=== PATIENT | female | born 1940 | race Caucasian/White ===

== ENCOUNTER → 2016-10-25 | Outpatient (CLI) | payer MEDICARE ==
[2014-12-02 11:09] VITALS: BP 106/58
[~2016-10-25] MED LIST: ACET325T9 PO; ASCO500T2 PO; ASPI-482 PO; ATEN50TA PO; CALC-178 PO; CARB1TAB22 PO; CYAN1TAB28 PO; DOCU-27 PO; GARL10002 PO; LOSA100T6 PO; OXYB5TAB7 PO; POTA99TA10 PO; SELE5TAB2 PO; TRAM-29 PO; VITA1CAP5 PO
--- NOTE | 2016-10-25 13:14 | RAD ---
DATE: 10/25/2016 EXAM: DIGITAL DIAGNOSTIC BILATERAL HISTORY: Follow-up nodule COMPARISON: 02/01/2015, 01/20/2015 This study was interpreted with the benefit of Computerized Aided Detection (CAD). FINDINGS: There are scattered fibroglandular densities in both breasts. There is a 5-6 mm nodule in the lateral aspect of the right breast, best seen on the cc view. This is unchanged since 01/20/2015, and also appears to have been present on older studies, although partially obscured on those other exams by overlying dense fibroglandular tissue. Its stability suggests a benign etiology. No new or enlarging breast densities are seen. A marker from a previous breast biopsies again seen in the left breast just medial to the midline. There are stable microcalcifications in both breasts. No suspicious microcalcifications have developed. IMPRESSION: Stable mammograms without evidence of malignancy. BI-RADS CATEGORY: 2 BENIGN FINDING(S) RECOMMENDED FOLLOW-UP: 12M 12 MONTH FOLLOW-UP PQRS compliance statement: Patient information was entered into a reminder system with a target due date for the next mammogram. Mammography is a sensitive method for finding small breast cancers, but it does not detect them all and is not a substitute for careful clinical examination. A negative mammogram does not negate a clinically suspicious finding and should not result in delay in biopsying a clinically suspicious abnormality. "Our facility is accredited by the [employer] Mammography Program."
== END | disposition home or self-care (01) ==
LOC: KCIC MAMMO 12:17
PROVIDERS: ATTEND Family Medicine
DX: R92.8 Other abnormal and inconclusive findings on diagnostic imaging of breast (principal); N63 Unspecified lump in breast
CPT/HCPCS: G0204; 77066

== ENCOUNTER 2017-08-23 14:03 | Emergency (ER) | payer MEDICARE | END 2017-08-23 16:45 | disposition home or self-care (01) | LOC: ER 14:03 | DX: J20.9 Acute bronchitis, unspecified (principal); I10 Essential (primary) hypertension; Z88.2 Allergy status to sulfonamides; Z88.5 Allergy status to narcotic agent; Z88.8 Allergy status to other drugs, medicaments and biological substances | CPT/HCPCS: 71020; 99284 ==

== ENCOUNTER → 2017-10-31 | Outpatient (CLI) | payer MEDICARE | END | disposition home or self-care (01) | LOC: KCIC MAMMO 13:44 | DX: Z12.31 Encounter for screening mammogram for malignant neoplasm of breast (principal) | CPT/HCPCS: 77063; 77067 ==

== ENCOUNTER → 2018-02-28 | Outpatient (CLI) | payer MEDICARE | END | disposition home or self-care (01) | LOC: ECHO 09:53 | DX: I08.2 Rheumatic disorders of both aortic and tricuspid valves (principal); I10 Essential (primary) hypertension | CPT/HCPCS: 93306 ==

== ENCOUNTER → 2018-06-26 | Outpatient (CLI) | payer MEDICARE ==
[2018-02-26 14:00] VITALS: BP 137/62
[~2018-06-26] MED LIST changes: +ATEN1TAB3 PO; +AZIT250T PO; +CIPR250T30 PO; +DOCU-109 PO; -DOCU-27 PO; -LOSA100T6 PO; +LOSA100T7 PO; +NITR100C62 PO; +POTA99TA3 PO; +REGADENOSON 0.4 MG/5 ML DISP.SYRIN. IV ONE; -TRAM-29 PO; +TRAM-48 PO
--- NOTE | 2018-06-26 13:29 | RAD ---
MR#: [id number] Date of Study: 06/26/2018 Ordering Physician: RONI XAVIER, Referring Physician: JB MORENO Tech: DIMITRY Alcala, ARRT (R) (N)Cristopher MejiaMARCY APPROVED REPORT Test Type: Pharmacological Stress Nurse/Tech: Addis Anne R.N. Test Indications: SOB, fatigue Cardiac History: htn, Medications: See Electronic Medical Record Medical History: See Electronic Medical Record Resting ECG: SB Resting Heart Rate: 56 bpm Resting Blood Pressure: 197/77mmHg Pretest Chest Pain: No chest pain Nurse/Tech Notes S1S2, lungs CTA Consent: The procedure was explained to the patient in lay terms. Informed consent was witnessed. Nemesio eout was entered into [employer]. History and Stress Test performed by RT Dora (R) (N) Pharm. Details Pharmacologic stress testing was performed using 0.4mg per 5ml of regadenoson given intravenously ove r 7-10 seconds. Stress Symptoms SOB POST EXERCISE Reason for Termination: Infusion complete Max HR: 93 bpm Max Blood Pressure: 148/75mmHg Blood Pressure response to exercise: Normal blood pressure response during stress. Heart Rate response to exercise: wnl Chest Pain: No. Arrhythmia: No. [address] Change: No. INTERPRETATION Stress EKG Conclusion: Baseline EKG showed sinus rhythm. No ischemic changes at peak stress. No arr hythmias. Imaging Protocol IMAGE PROTOCOL: Rest Tc-99m/stress Tc-99m 1 day Rest: Stress: Viability: Radiopharm.Tc99m IxxnpnnxvWr19t Sestamibi Dose11.5mCi 33mCi Duration 15min. 13min. Img Date 06/26/2018 06/26/2018 Inj-Img Xnqm22pqv. 60min. Rest Admin Site:IV - Right AntecubitalAdministrator:RT Dora (R)(N) Stress Admin Site: IV - Right AntecubitalAdministrator: DIMITRY Alcala, ALEXSANDERT (R)(N) STRESS DATA End Diast. Vol.65.0mlEnd Syst. Vol.13.0ml Myocardial Pfbw190.0gEject. Nrhnjfdp77.0% Stress Scores Regional WT0.00Summed WT0.00 Regional WM0.00Summed WM0.00 Study quality was good. Left Ventricular size was Normal at Rest and Stress. Lung uptake was . Left Ventricular ejection fraction is 80%. The rest and stress images show normal perfusion, normal contraction and thickening. LV Perf. Quant 17 Seg. SSS0.00 17 Seg. SRS1.00 17 Seg. SDS0.00 Stress Defect Extent (% LAD)0.00Rest Defect Extent (% LAD)0.00Rev. Defect Extent (% LAD)0.00 Stress Defect Extent (% LCX) 0.00Rest Defect Extent (% LCX)0.00Rev. Defect Extent (% LCX)0.00 Stress Defect Extent (% RCA)0.00Rest Defect Extent (% RCA)0.00Rev. Defect Extent (% RCA)0.00 Stress Defect Extent (% CHARLES)0.00Rest Defect Extent (% CHARLES)0.00Rev. Defect Extent (% CHARLES)0.00 Conclusion 1. Regadenoson cardioisotope stress test did not show any evidence of ischemia or infarct. 2. Normal left ventricular systolic function with ejection fraction calculated at 81%. 3. Low risk for cardiac events. Signed by : Delonte Us, Electronically Approved : 06/26/2018 13:28:55
== END | disposition home or self-care (01) ==
LOC: NM 10:23
PROVIDERS: ATTEND Internal Medicine Cardiovascular Disease
DX: R06.02 Shortness of breath (principal); R07.9 Chest pain, unspecified; R53.83 Other fatigue; I10 Essential (primary) hypertension
CPT/HCPCS: 78452; 93017; 96374; 96375; 96376; A9500; J2785

== ENCOUNTER 2020-01-22 19:40 | Emergency (ER) | payer MEDICARE ==
[~2020-01-22] VITALS: Ht 167.6 cm; Wt 80.9 kg
[~2020-01-22 19:40] MED LIST changes: -ASCO500T2 PO; +ASCO500T4 PO; +LOSA100T14 PO; -LOSA100T7 PO; +OXYB5TAB10 PO; -OXYB5TAB7 PO; -REGADENOSON 0.4 MG/5 ML DISP.SYRIN. IV ONE; +SELE5TAB PO; -SELE5TAB2 PO
[2020-01-22] MEDS ORDERED: IV NORMAL SALINE 500ML BAG 500 ML IV SCH (20:30)
[2020-01-22 20:34] LABS: BASO % 1 % (0-3); EOS # 0.1 x10^3/uL (0.0-0.7); EOS % 1 % (0-3); HEMATOCRIT 38.3 % (36.0-47.0); HEMOGLOBIN 13.4 g/dL (12.0-15.5); LYMPH # 2.5 x10^3/uL (1.0-4.8); LYMPH % 31 % (24-48); MEAN CORPUSCULAR HEMOGLOBIN 32 pg (25-35); MEAN CORPUSCULAR HGB CONC 35 g/dL (31-37); MEAN CORPUSCULAR VOLUME 91 fL (79-100); MONO # 0.8 x10^3/uL (0.0-1.1); MONO % 10 % (0-9); NEUT # 4.7 x10^3/uL (1.8-7.7); NEUT % 57 % (31-73); PLATELET COUNT 278 x10^3/uL (140-400); RED BLOOD COUNT 4.22 x10^6/uL (3.50-5.40); RED CELL DISTRIBUTION WIDTH 12.8 % (11.5-14.5); WHITE BLOOD COUNT 8.2 x10^3/uL (4.0-11.0)
--- NOTE | 2020-01-22 20:49 | RAD ---
RS Compliance Statement: One or more of the following individualized dose reduction techniques were utilized for this examination: 1. Automated exposure control 2. Adjustment of the mA and/or kV according to patient size 3. Use of iterative reconstruction technique CT HEAD WITHOUT CONTRAST History: Reason: dizziness post chiropractic adjustment / Spl. Instructions: / History: Comparison: None. Technique: Axial images are obtained of the head from the skull base through the vertex without IV contrast. Findings: No mass-effect, midline shift, extra-axial fluid collection, hemorrhage, or obvious acute infarction is identified. Basilar cisterns are patent. The ventricles and sulci are normal for patient age. Bone windows demonstrate no acute calvarial abnormality. The visualized paranasal sinuses are clear. Mastoid air cells are well aerated. IMPRESSION: No acute intracranial abnormality. Electronically signed by: Reji Mayers MD (01/22/2020 8:46 PM) [facility]
--- NOTE | 2020-01-22 20:55 | RAD ---
PORTABLE CHEST 1V 01/22/2020 8:26 PM INDICATION: Syncope COMPARISON: 02/25/2018 TECHNIQUE: Portable frontal view of the chest is provided. FINDINGS: The cardiomediastinal silhouette is within normal limits. Lungs are clear. There are no significant pleural effusions. There is no pulmonary vascular congestion. No pneumothorax. No suspicious osseous abnormality. IMPRESSION: There is no acute cardiopulmonary process. Electronically signed by: Ladonna Jalloh MD (01/22/2020 8:52 PM) [facility]
--- NOTE | 2020-01-22 21:19 | PHYS DOC ---
Past Medical History Past Medical History: Hypertension, Unknown, Other Additional Past Medical Histor: parkinson, bladder trouble Past Surgical History: Appendectomy, Hysterectomy, Knee Replacement Additional Past Surgical Histo: bilateral great toe surgery Smoking Status: Never Smoker Alcohol Use: None Drug Use: None General Adult EDM: Chief Complaint: NEAR SYNCOPE HPI: HPI: Patient is a 79 year old female who presents with complaint of feeling very fuzzy headed for the last couple of days. Patient states that on Saturday she had a syncopal episode, stating that she was feeling really dizzy. She states that she went to see the chiropractor on Saturday to be treated for the dizziness because her C2 goes out frequently. She states that chiropractic adjustment was successful but she has been fuzzyheaded ever since. She denies any actual headache. She denies chest pain or shortness of breath. [] Review of Systems: Review of Systems: Constitutional: Denies fever or chills. [] Respiratory: Denies cough or shortness of breath. [] Cardiovascular: Denies chest pain or edema. [] GI: Denies abdominal pain, nausea, vomiting or diarrhea. [] Musculoskeletal: Denies back pain or joint pain. [] Integument: Denies rash. [] Neurologic: Denies headache, focal weakness or sensory changes. [] A full 10 point review of systems has been reviewed and is otherwise negative. Heart Score: Risk Factors: Risk Factors: DM, Current or recent (<one month) smoker, HTN, HLP, family history of CAD, obesity. Risk Scores: Score 0 - 3: 2.5% MACE over next 6 weeks - Discharge Home Score 4 - 6: 20.3% MACE over next 6 weeks - Admit for Clinical Observation Score 7 - 10: 72.7% MACE over next 6 weeks - Early Invasive Strategies Current Medications: Current Medications Medications (Trade) Dose Ordered Sig/Portia Start Time Stop Time Status Last Admin Dose Admin Sodium Chloride 500 ml @ 500 mls/hr Q1H 01/22/20 20:30 Allergies: Allergies: Allergies Coded Allergies Type Severity Reaction Last Updated Verified Sulfa (Sulfonamide Antibiotics) Allergy Intermediate rash 11/25/14 Yes adhesive Allergy Intermediate rash 11/25/14 Yes gabapentin Allergy Intermediate Unknown 11/26/14 No codeine Adverse Reaction Intermediate DISORIENTATION 11/25/14 Yes hydrocodone Adverse Reaction Intermediate "LOOPY" per RR RN 12/01/14 Yes Physical Exam: PE: Constitutional: Well developed, well nourished, no acute distress, non-toxic appearance. [] HENT: Normocephalic, atraumatic, bilateral external ears normal, oropharynx moist, no oral exudates, nose normal. [] Eyes: PERRLA, EOMI, conjunctiva normal, no discharge. [] Neck: Normal range of motion, no tenderness, supple. [] Cardiovascular: Regular rate and rhythm [] Lungs & Thorax: Bilateral breath sounds clear to auscultation [] Abdomen: Bowel sounds normal, soft, no tenderness. [] Skin: Warm, dry, no erythema, no rash. [] Extremities: No tenderness, no cyanosis, no clubbing, ROM intact, no edema. [] Neurologic: Alert and oriented X 3, no focal deficits noted. [] Current Patient Data: Labs: Laboratory Tests Test 01/22/20 20:05 White Blood Count 8.2 x10^3/uL (4.0-11.0) Red Blood Count 4.22 x10^6/uL (3.50-5.40) Hemoglobin 13.4 g/dL (12.0-15.5) Hematocrit 38.3 % (36.0-47.0) Mean Corpuscular Volume 91 fL (79-100) Mean Corpuscular Hemoglobin 32 pg (25-35) Mean Corpuscular Hemoglobin Concent 35 g/dL (31-37) Red Cell Distribution Width 12.8 % (11.5-14.5) Platelet Count 278 x10^3/uL (140-400) Neutrophils (%) (Auto) 57 % (31-73) Lymphocytes (%) (Auto) 31 % (24-48) Monocytes (%) (Auto) 10 % (0-9) H Eosinophils (%) (Auto) 1 % (0-3) Basophils (%) (Auto) 1 % (0-3) Neutrophils # (Auto) 4.7 x10^3/uL (1.8-7.7) Lymphocytes # (Auto) 2.5 x10^3/uL (1.0-4.8) Monocytes # (Auto) 0.8 x10^3/uL (0.0-1.1) Eosinophils # (Auto) 0.1 x10^3/uL (0.0-0.7) Basophils # (Auto) 0.0 x10^3/uL (0.0-0.2) Laboratory Tests 01/22/20 20:05 Vital Signs: Vital Signs Date Time Temp Pulse Resp B/P (MAP) Pulse Ox O2 Delivery O2 Flow Rate FiO2 01/22/20 19:40 97.7 75 19 166/87 (113) 98 Room Air 97.7 EKG: EKG: [] Radiology/Procedures: Radiology/Procedures: [] Impression: PROCEDURE: CT HEAD WO CONTRAST PQRS Compliance Statement: One or more of the following individualized dose reduction techniques were utilized for this examination: 1. Automated exposure control 2. Adjustment of the mA and/or kV according to patient size 3. Use of iterative reconstruction technique CT HEAD WITHOUT CONTRAST History: Reason: dizziness post chiropractic adjustment / Spl. Instructions: / History: Comparison: None. Technique: Axial images are obtained of the head from the skull base through the vertex without IV contrast. Findings: No mass-effect, midline shift, extra-axial fluid collection, hemorrhage, or obvious acute infarction is identified. Basilar cisterns are patent. The ventricles and sulci are normal for patient age. Bone windows demonstrate no acute calvarial abnormality. The visualized paranasal sinuses are clear. Mastoid air cells are well aerated. IMPRESSION: No acute intracranial abnormality. Electronically signed by: Reji Esposito MD (01/22/2020 8:46 PM) [facility] DICTATED and SIGNED BY: REJI ESPOSITO MD DATE: 01/22/202045 Course & Med Decision Making: Course & Med Decision Making Pertinent Labs and Imaging studies reviewed. (See chart for details) [] Dragon Disclaimer: Dragon Disclaimer: This electronic medical record was generated, in whole or in part, using a voice recognition dictation system. Departure Departure Impression: Primary Impression: Dizziness Additional Impression: UTI (urinary tract infection) Qualified Codes: N39.0 - Urinary tract infection, site not specified Disposition: 01 HOME, SELF-CARE Condition: STABLE Referrals: MAILE GONZÁLES MD (PCP) Patient Instructions: Dizziness, Urinary Tract Infection Scripts Nitrofurantoin Monohyd/M-Cryst (MACROBID 100 MG CAPSULE) 100 Mg Capsule 1 CAP PO BID for 7 Days, #14 CAP 0 Refills Prov: VANESSA PEDRO Jr. DO 01/23/20 VANESSA PEDRO Jr. DO January 22, 2020 21:19
[2020-01-22 21:43] LABS: BILIRUBIN,URINE NEGATIVE (NEG); CLARITY,URINE CLEAR; NITRITE,URINE NEGATIVE (NEG); PH,URINE 7.5 (<5.0-8.0); PROTEIN,URINE NEGATIVE (NEG-TRACE); UROBILINOGEN,URINE 0.2 mg/dL (0.2 mg/dL)
[2020-01-22 21:47] LABS: COLOR,URINE STRAW
[2020-01-22 21:52] LABS: ALBUMIN 3.3 g/dL (3.4-5.0); CALCIUM 8.7 mg/dL (8.5-10.1); CREATININE 1.2 mg/dL (0.6-1.0); GFR 43.3; MAGNESIUM 1.7 mg/dL (1.8-2.4); TOTAL BILIRUBIN 0.3 mg/dL (0.2-1.0); TOTAL PROTEIN 6.6 g/dL (6.4-8.2)
[2020-01-22 21:52] LABS: BACTERIA,URINE FEW /HPF (0-FEW); RBC,URINE OCC /HPF (0-2); SQUAMOUS EPITHELIAL CELL,UR FEW /LPF; WBC,URINE 20-40 /HPF (0-4)
[2020-01-22 22:00] LABS: POTASSIUM 2.9 mmol/L (3.5-5.1)
[2020-01-22] MEDS ORDERED: POTASSIUM CHLORIDE 20 MEQ TABLET.ER. PO ONE (22:15)
[2020-01-22] MEDS ORDERED: IV NORMAL SALINE 500ML BAG 500 ML IV ONE (23:00)
[2020-01-22] MEDS ORDERED: cefTRIAXone IV Push 1 GM VIAL. IVP ONE (23:55)
[2020-01-23] MEDS ORDERED: NITR100C62 PO (00:17)
[2020-01-23 00:20] VITALS: BP 146/69
--- NOTE | 2020-01-24 10:19 | EKG ---
[facility] [address] [place] [address] Test Date: 2020-01-22 Test Time: 19:54:52 Pat Name: THEODORE MILTON Department: Room: Gender: F [employer] Tender: : 1940 Requested By: VANESSA PEDRO Order Number: [id number] Reading MD: Measurements Intervals [facility] Rate: 65 P: 36 RI: 248 QRS: 23 QRSD: 96 T: 24 QT: 418 QTc: 435 Interpretive Statements SINUS RHYTHM PROLONGED RI INTERVAL ABNORMAL ECG RI6.02 No previous ECG available for comparison
== END 2020-01-23 00:50 | disposition home or self-care (01) ==
LOC: ER 19:40
DX: N39.0 Urinary tract infection, site not specified (principal); R55 Syncope and collapse; R42 Dizziness and giddiness; I10 Essential (primary) hypertension; Z90.710 Acquired absence of both cervix and uterus; Z90.89 Acquired absence of other organs; Z98.890 Other specified postprocedural states; Z88.2 Allergy status to sulfonamides; Z88.5 Allergy status to narcotic agent; Z88.8 Allergy status to other drugs, medicaments and biological substances
CPT/HCPCS: 36415; 70450; 71045; 80053; 81001; 83735; 85025; 87086; 96361; 96374; 99285; J0696; J7040; 93005

== ENCOUNTER → 2020-03-08 | Outpatient (CLI) | payer MEDICARE ==
--- NOTE | 2020-03-08 12:15 | KCIC ---
MRI Lumbar Spine without contrast History: Low back pain, right leg weakness Technique: Multiplanar, multi sequential noncontrast MR imaging was performed of the lumbar spine. Comparison: 10/21/2014 Findings: There is some motion. There is again grade 1 anterior spondylolisthesis L4-5 and L5-S1. There is now negligible posterior subluxation L2 relative L3. There has been progression of mild to moderate degenerative disc disease at L2-3 and L3-4, degree of mild to moderate L4-5 and L5-S1 degenerative disc disease more similar in interval. There is also anterior degenerative disc disease at T12-L1 and minimally L1-2. There is minimal edema of the L2-3 and superior L4 endplates probably reactive/degenerative in etiology. Conus terminates near the mid aspect of L2. 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 T11-12: There is facet degenerative change resulting in mild neural foramina compromise bilaterally. Spinal canal is adequate. There is buckling of the ligamentum flavum. T12-L1: There is shallow posterior protrusion. There is mild buckling of the ligamentum flavum and facet degenerative change. Neural foramina and spinal canal are adequate. L1-L2: There is shallow posterior bulge. There is mild buckling of the ligamentum flavum and facet degenerative change. There is again minimal narrowing of the far lateral recesses bilaterally. There is mild bilateral neural foramina compromise. L2-L3: There is disc osteophyte complex and bulge/broad protrusion now present, indentation upon the ventral thecal sac greater in the far left lateral recess. There is moderate facet hypertrophic change and mild to moderate buckling of the ligamentum flavum. There is increased tmez-ab-txuquaem narrowing of the far left lateral recess, mild narrowing of the far right lateral recess. There is increased moderate narrowing of the left neural foramen, minimal narrowing on the right. Small cystic focus in the right neural foramen is more likely due to small nerve root sleeve cyst. There is anterior annular tear. L3-L4: There is more prominent disc osteophyte complex and bulge. There is again moderate to severe facet degenerative change and buckling of the ligamentum flavum. There is overall increased moderate spinal stenosis including narrowing of the far lateral recesses bilaterally with contact of the descending L4 nerve roots. There is increased moderate left and fairly severe right neural foramina compromise with contact exiting L3 nerve roots greater on the right. There may be component of very small extrusion extending above the intervertebral disc space in the proximal right extraforaminal region although also narrowing of the right neural foramen by facet hypertrophic change and disc osteophyte complex. L4-L5: There has been interval posterior decompression. There is minimal disc osteophyte complex and bulge. Spinal canal is adequate. There is lffh-ml-ancmcvwp left and moderate right neural foramina compromise in part by disc osteophyte complex which is near the undersurface exiting right L4 nerve root. L5-S1: There has been interval posterior decompression, spinal canal overall adequate. There is fairly severe facet degenerative change. There is severe narrowing of the left neural foramen with contact exiting left L5 nerve root, moderate narrowing on the right. Impression: 1. Compared with the 2015 exam, there has been progression of degenerative disc disease at L2-3 and L3-4. There is increased moderate spinal stenosis at L3-4 including lateral recess stenosis, also increased xetz-ab-njwrymne narrowing of the left lateral recess at L2-3. There has been posterior decompression at L4-5 and L5-S1 in the interval, spinal canal adequate at these levels. 2. There is multilevel lumbar neural foramina compromise, more significant narrowing on the right at L3-4 and on the left at L5-S1, other moderate narrowing as described. 3. There is mild abnormal alignment. There is multilevel lumbar facet degenerative change. Electronically signed by: Gordo Zaragoza MD (03/08/2020 12:11 PM) [id number]
== END | disposition home or self-care (01) ==
LOC: KCIC MRI 10:43
PROVIDERS: ATTEND Family Medicine
DX: M51.37 Other intervertebral disc degeneration, lumbosacral region (principal); M51.25 Other intervertebral disc displacement, thoracolumbar region; M43.17 Spondylolisthesis, lumbosacral region; M25.78 Osteophyte, vertebrae; M48.07 Spinal stenosis, lumbosacral region
CPT/HCPCS: 72148

== ENCOUNTER → 2020-04-18 | Outpatient (CLI) | payer MEDICARE | END | disposition home or self-care (01) | LOC: SURGPAT 13:42 | PROVIDERS: ATTEND Neurological Surgery | DX: Z01.812 Encounter for preprocedural laboratory examination (principal); Z20.828 Contact with and (suspected) exposure to other viral communicable diseases; M48.061 Spinal stenosis, lumbar region without neurogenic claudication | CPT/HCPCS: 87641; U0003 ==

== ENCOUNTER 2020-04-21 07:08 | Day surgery (SDC) | payer MEDICARE ==
--- NOTE | 2020-04-20 11:41 | HP ---
ADMIT DATE: 04/21/2020 DATE OF SURGERY: 04/21/2020 HISTORY OF PRESENT ILLNESS: The patient is a pleasant 79-year-old who has problems with lower back pain on the right side along with pain which radiates into her right hip. This pain has been present for about 1 year. She rates her pain as 7/10. Walking or standing increases her pain. She was doing physical therapy, which she reported makes the problem worse. Acupuncture was no benefit to her. She uses a walker to help with ambulation. She does not notice significant lower extremity involvement. PAST MEDICAL HISTORY: Headaches, Parkinson's, and hypertension. PAST SURGICAL HISTORY: Hysterectomy in 1986, knee surgery in 2002, foot surgery in 2012, and lumbar microdecompression at L4-5 and L5-S1 bilaterally in 11/2014. FAMILY HISTORY: Alzheimer disease and cancer. SOCIAL HISTORY: She is retired. . Exercises rarely. Nonsmoker. Denies alcohol use. ALLERGIES: SULFA, HYDROCODONE, CODEINE, ADHESIVE BANDAGES, AND NEURONTIN. CURRENT MEDICATIONS: Carbidopa/levodopa, selegiline, losartan, potassium, atenolol, aspirin, oxybutynin, chlorthalidone, and multivitamin. REVIEW OF SYSTEMS: A 12-point review of systems was obtained and is noncontributory except that mentioned above. PHYSICAL EXAMINATION: NEUROSURGERY EXAMINATION: GENERAL APPEARANCE: Alert, in no acute distress. HEAD: Normocephalic, atraumatic. SKIN: Warm and dry, well-healed lumbar incision. MUSCULOSKELETAL: Lumbar paraspinal muscle bulk is normal, restricted range of motion of the lumbar spine, xxso-zq-zwlanydc tenderness of the lower lumbar spine with palpation, normal range of motion of the lower extremities bilaterally. EXTREMITIES: No clubbing, cyanosis, or edema. NEUROLOGIC: Alert and oriented x 3, normal recent and remote memory. Strength 5/5 in bilateral lower extremities, sensory was intact to light touch in bilateral lower extremities. Reflexes are present and symmetric in lower extremities bilaterally, negative straight leg raising bilaterally, ambulates with a walker. IMAGING: I reviewed a lumbar MRI scan. On that study, there has been a progression, primarily of the stenosis at L3-4. At that level, there is disk bulging and hypertrophic facets with relatively severe lumbar spinal stenosis. She does have postoperative changes below this level at L4-5 and L5-S1. ASSESSMENT: Spinal stenosis, lumbar region with neurogenic claudication. PLAN: I believe the stenosis at L3-4 is continuing to give her pain. I have recommended lumbar surgery. At this level, I would do a bilateral decompression. I spoke with her about the surgery and the risks. She understands. She would like to go ahead. We will make the arrangements. JASON BAER MD DR: MAYA/meche JOB#: [id number] / [id number] MELODY
[~2020-04-21] VITALS: Ht 167.6 cm; Wt 78.9 kg
[~2020-04-21 07:08] MED LIST changes: +BACITRACIN 50,000 UNIT in IV NORMAL SALINE 1000ML BAG 1,000 ML IRR ONE; +HYDROmorphone 2 MG/ML VIAL IV PRN; +IV RINGERS,LACTATED 1000ML 1,000 ML IV SCH; +LIDOCAINE 1% PF 2 ML VIAL. ID PRN; +MORPHINE SULFATE 2 MG/ML VIAL. IV PRN; +ONDANSETRON PF 4 MG/2 ML VIAL. IV PRN; +PROCHLORPERAZINE 10 MG/2 ML VIAL. IV PRN; +fentaNYL PF VIAL 100 MCG/2 ML VIAL IV PRN
[2020-04-21] MEDS ORDERED: GELATIN SPONGE SIZE 100. ONE (07:36)
[2020-04-21] MEDS ORDERED: KETOROLAC 60 MG/2 ML VIAL. ONE (07:36)
[2020-04-21] MEDS ORDERED: BUPIVACAINE-EPI 0.5%-1:200000 MPF 30 ML VIAL. ONE (07:36)
[2020-04-21] MEDS ORDERED: THROMBIN TOPICAL 20,000 UNIT SPRAY.SYRN KIT TP ONE (07:36)
[2020-04-21] MEDS ORDERED: PROPOFOL 10 MG/ML (20ML) VIAL. IV ONE (07:59)
[2020-04-21] MEDS ORDERED: PROPOFOL 50 ML IV ONE ×2 (07:59→10:31)
[2020-04-21] MEDS ORDERED: LIDOCAINE 2% PF 5 ML VIAL. ONE (07:59)
[2020-04-21] MEDS ORDERED: SUCCINYLCHOLINE 200 MG/10 ML VIAL. ONE (07:59)
[2020-04-21] MEDS ORDERED: ROCURONIUM 50 MG/5 ML VIAL. ONE (07:59)
[2020-04-21] MEDS ORDERED: REMIFENTANIL 1 MG VIAL. IV ONE ×2 (07:59→10:45)
[2020-04-21] MEDS ORDERED: 0.9 % SODIUM CHLORIDE 20 ML VIAL. IJ ONE ×2 (07:59→10:45)
[2020-04-21] MEDS ORDERED: fentaNYL PF VIAL 100 MCG/2 ML VIAL ONE (08:13)
[2020-04-21] MEDS ORDERED: ONDANSETRON PF 4 MG/2 ML VIAL. ONE (09:35)
[2020-04-21] MEDS ORDERED: DEXAMETHASONE SOD PHOS 20 MG/5 ML VIAL. ONE (09:35)
[2020-04-21] MEDS ORDERED: NEOSTIGMINE METHYLSULFATE 5 MG/5 ML SYRINGE. ONE (09:57)
[2020-04-21] MEDS ORDERED: GLYCOPYRROLATE 1 MG/5 ML VIAL. ONE (09:57)
--- NOTE | 2020-04-21 11:42 | DISCH ---
DISCHARGE INSTRUCTIONS Condition on Discharge Condition on Discharge: Stable Activity After Discharge Activity Instructions for Disc: Activity as tolerated, Avoid exertion Other activity instructions: no driving for a week Bathing Instructions: Shower-keep dressing dry, No Tub Bath until see Lifting Instructions after Dis: No heavy lifting, No pulling or pushing, Do not lift >10 pounds Driving Instructions after Dis: Do not drive Weight Bearing Status after Di: As tolerated Diet after Discharge Diet after Discharge: Regular Additional Diet Restrictions: resume home diet Wound Incision Care Wound/Incision Care: Ice to area for comfort Other wound/incision instructi: may remove dressing in 48 hours if dry , leave steri strips on Contacting the DRFlor after DC Call your doctor for: Concerns you may have Follow-Up Follow up with: Dr. Baer's nurse in 2 weeks [phone] Treatment/Equipment after DC Adaptive Equipment Issued: None JASON BAER MD Apr 21, 2020 11:42
[2020-04-21 13:15] VITALS: BP 179/66
[2020-04-21] MEDS ORDERED: ACETAMINOPHEN 325 MG TABLET. PO ONE (13:15)
--- NOTE | 2020-04-21 13:25 | OP ---
DATE OF SURGERY: 04/21/2020 PREOPERATIVE DIAGNOSES: Lumbar spinal stenosis, lateral recess stenosis at L3-4 with severe right lumbar radiculopathy. POSTOPERATIVE DIAGNOSES: Lumbar spinal stenosis, lateral recess stenosis L3-4 with severe right lumbar radiculopathy. OPERATION PERFORMED: Right direct laminectomy L3-4 with decompression of dura and nerve root. The operation was done with EMG monitoring, SSEP monitoring, fluoroscopy, and microscopic dissection. SURGEON: Kevan Baer M.D. HR SYSTEMS ANALYST: ARIK Harris, assisted with the surgery. She assisted with the exposure, the microdecompression as well as the closure. OPERATIVE INDICATIONS: The patient is a pleasant 79-year-old who has undergone lumbar surgery in the past and now has developed stenosis at L3-4, which is above the previous surgeries. The problem has involved in severe right lower extremity pain and I recommended a lumbar laminectomy. I spoke with her about the surgery, the risks, technique, and expected postoperative course and she wished to go ahead. DESCRIPTION OF PROCEDURE: Following general endotracheal anesthesia, the patient was positioned prone on the Tyrell frame. She was carefully positioned to avoid any pressure points. She was prepped and draped in a standard fashion. LEIGH hose and AV impulse boots were applied for DVT prophylaxis. A microscope was draped. Fluoroscopy was draped and brought in the field. Monitoring was established. Ancef 2 g was given at 0960. Skin incision was made, I dissected down through skin and subcutaneous tissue, reflected the paraspinal muscles and placed a [place] microdisk retractor. I did use fluoroscopic guidance. I then brought in the high speed air drill and the microscope and using microscopic technique, I drilled from the midline out laterally. There was considerable scarring from her previous surgeries and I worked down the ligamentum flavum and then I tilted the patient away from me and crossed over the midline and were quite far to the opposite side. I then peeled ligamentum flavum from medial to lateral, and I drilled it and peeled and gradually visualized the dura. I did perform a generous partial foraminotomy. I trimmed laterally past the lateral edge of the dura. I peeled away the thickened ligamentum flavum and exposed the underlying dura and then I fully decompressed the entire region. There was some disc bulging beneath the dura, but it was hard and no discectomy was warranted. I irrigated copiously with antibiotic solution. I then obtained excellent hemostasis and closed the wound in layers with absorbable suture. The skin was closed with 4-0 subcuticular stitch. I felt the surgery went very well. KEVAN BAER MD DR: MAYA/meche JOB#: [id number] / [id number] MELODY
[2020-04-21] MEDS ORDERED: CARBIDOPA/LEVODOPA 25/100MG TABLET PO ONE (13:30)
--- NOTE | 2020-04-25 19:06 | PATHOLOGY ---
[facility] Accession Number: [id number] . 01 Material submitted: . vertebral column - LUMBAR DECOMPRESSION . 01 Clinical history: . LUMBAR STENOSIS . 02 Diagnosis: Bone and soft tissue "L3-4", microdecompression: - Reactive/regenerative changes of hyaline cartilage and fibrous tissue. - Unremarkable fragments of bony trabeculae. (MLK:patricia; 04/22/2020) MBR 04/22/2020 1755 Local . 02 Electronically signed: . Manuel De Leon MD, Pathologist NPI- [id number] . 01 Gross description: . Received in formalin labeled "Beor, Maryjo, lumbar decompression" is a 4.0 x 3.0 x 0.8 cm aggregate of nava-white bone and soft tissue fragments. Hardwood Floor Sander tissue is submitted in cassette A1 following decalcification. ([facility] [place]; 04/21/2020) [facility] 04/21/2020 1804 Local . 02 Pathologist provided ICD-10: M51.36 . 02 CPT . 364678, [id number] Specimen Comment: A courtesy copy of this report has been sent to [phone], [phone] Specimen Comment: [id number] Specimen Comment: Report sent to / DR GONZÁLES Performed at: 01 [facility] [address] [facility] [address] [place], [place] [id number] MD Beni Farris MD Phone: [phone] Performed at: 02 [facility] [address] [id number] MD Cristian Diaz MD Phone: [phone]
== END 2020-04-21 14:14 | disposition home or self-care (01) ==
LOC: SURG 07:08
PROVIDERS: ATTEND Neurological Surgery
DX: M48.061 Spinal stenosis, lumbar region without neurogenic claudication (principal); M54.16 Radiculopathy, lumbar region; I10 Essential (primary) hypertension; Z98.890 Other specified postprocedural states; Z88.5 Allergy status to narcotic agent; Z88.2 Allergy status to sulfonamides; Z88.8 Allergy status to other drugs, medicaments and biological substances; Z79.82 Long term (current) use of aspirin; Z79.899 Other long term (current) drug therapy
CPT/HCPCS: 63047; 88304; 88311; 97116; 97162; 97530; A7015; J0330; J0690; J1100; J1885; J2405; J2704; J2710; J3010; J3490; J7030; J7120; 76000

== ENCOUNTER 2021-02-19 20:35 | Emergency (ER) | payer MEDICARE ==
[~2021-02-19] VITALS: Ht 167.6 cm; Wt 75.0 kg
[~2021-02-19 20:35] MED LIST changes: -BACITRACIN 50,000 UNIT in IV NORMAL SALINE 1000ML BAG 1,000 ML IRR ONE; -HYDROmorphone 2 MG/ML VIAL IV PRN; -IV RINGERS,LACTATED 1000ML 1,000 ML IV SCH; -LIDOCAINE 1% PF 2 ML VIAL. ID PRN; -MORPHINE SULFATE 2 MG/ML VIAL. IV PRN; -ONDANSETRON PF 4 MG/2 ML VIAL. IV PRN; -PROCHLORPERAZINE 10 MG/2 ML VIAL. IV PRN; -fentaNYL PF VIAL 100 MCG/2 ML VIAL IV PRN
--- NOTE | 2021-02-19 22:11 | ED.ADGEN ---
Past Medical History Past Medical History: Hypertension, Unknown, Other Additional Past Medical Histor: parkinson, bladder trouble Past Surgical History: Appendectomy, Hysterectomy, Knee Replacement Additional Past Surgical Histo: bilateral great toe surgery, bilat knee replace Smoking Status: Never Smoker Alcohol Use: None Drug Use: None General Adult EDM: Chief Complaint: DIZZY/LIGHT HEADED HPI: HPI: Patient is a 80 year old female coming to emergency department for syncopal episodes. Patient was discharged in the hospital 3 days ago for the same complaint. Patient states that she has been having stomach upset with eating and been eating less. Also states that she took a laxative 2 days ago and had a large bowel movement yesterday. Patient states that she cannot have bowel movements without laxative. States she is felt lightheaded even with laying down it is comes and goes. Is not associated with standing up or movement. Review of Systems: Review of Systems: All other systems within normal limits except for as noted in the HPI Current Medications: Current Medications Medications (Trade) Dose Ordered Sig/Portia Start Time Stop Time Status Last Admin Dose Admin Magnesium Sulfate/ Dextrose 100 ml @ 100 mls/hr 1X ONCE 02/19/21 23:30 02/20/21 00:29 02/20/21 00:03 100 MLS/HR Allergies: Allergies: Allergies Coded Allergies Type Severity Reaction Last Updated Verified Sulfa (Sulfonamide Antibiotics) Allergy Intermediate rash 04/21/20 Yes adhesive Allergy Intermediate rash 04/21/20 Yes gabapentin Allergy Intermediate Unknown 04/21/20 No codeine Adverse Reaction Intermediate DISORIENTATION 04/21/20 Yes hydrocodone Adverse Reaction Intermediate "LOOPY" per RR RN 04/21/20 Yes Physical Exam: PE: Constitutional: Well developed, well nourished, no acute distress, non-toxic appearance. [] HENT: Normocephalic, atraumatic, bilateral external ears normal, nose normal. [] Eyes: PERRLA, conjunctiva normal, no discharge. [] Neck: No rigidity, supple, no stridor. [] Cardiovascular: Regular rate and rhythm, brisk cap refill [] Lungs & Thorax: Non labored symmetric respirations, no tachypnea or respiratory distress [] Abdomen: Soft, nondistended. Skin: Warm, dry, no erythema, no rash. [] Back: Unremarkable Extremities: No deformities, range of motion grossly intact, no lower extremity edema [] Neurologic: Alert and oriented X 3, no focal deficits noted. [] Psychologic: Affect normal, judgement normal, mood normal. [] Current Patient Data: Labs: Laboratory Tests Test 02/19/21 22:57 White Blood Count 9.1 x10^3/uL (4.0-11.0) Red Blood Count 4.14 x10^6/uL (3.50-5.40) Hemoglobin 12.8 g/dL (12.0-15.5) Hematocrit 37.6 % (36.0-47.0) Mean Corpuscular Volume 91 fL (79-100) Mean Corpuscular Hemoglobin 31 pg (25-35) Mean Corpuscular Hemoglobin Concent 34 g/dL (31-37) Red Cell Distribution Width 12.6 % (11.5-14.5) Platelet Count 293 x10^3/uL (140-400) Neutrophils (%) (Auto) 62 % (31-73) Lymphocytes (%) (Auto) 28 % (24-48) Monocytes (%) (Auto) 9 % (0-9) Eosinophils (%) (Auto) 0 % (0-3) Basophils (%) (Auto) 1 % (0-3) Neutrophils # (Auto) 5.6 x10^3/uL (1.8-7.7) Lymphocytes # (Auto) 2.6 x10^3/uL (1.0-4.8) Monocytes # (Auto) 0.8 x10^3/uL (0.0-1.1) Eosinophils # (Auto) 0.0 x10^3/uL (0.0-0.7) Basophils # (Auto) 0.1 x10^3/uL (0.0-0.2) Sodium Level 130 mmol/L (136-145) L Potassium Level 3.3 mmol/L (3.5-5.1) L Chloride Level 95 mmol/L (98-107) L Carbon Dioxide Level 24 mmol/L (21-32) Anion Gap 11 (6-14) Blood Urea Nitrogen 15 mg/dL (7-20) Creatinine 1.1 mg/dL (0.6-1.0) H Estimated GFR (Cockcroft-Gault) 47.8 BUN/Creatinine Ratio 14 (6-20) Glucose Level 101 mg/dL (70-99) H Lactic Acid Level 1.0 mmol/L (0.4-2.0) Calcium Level 9.0 mg/dL (8.5-10.1) Phosphorus Level 3.9 mg/dL (2.6-4.7) Magnesium Level 1.6 mg/dL (1.8-2.4) L Total Bilirubin 0.4 mg/dL (0.2-1.0) Aspartate Amino Transferase (AST) 13 U/L (15-37) L Alanine Aminotransferase (ALT) 8 U/L (14-59) L Alkaline Phosphatase 61 U/L (46-116) Troponin I Quantitative < 0.017 ng/mL (0.000-0.055) IZ-Huf-O-Type Natriuretic Peptide 912 pg/mL (0-449) H Total Protein 6.2 g/dL (6.4-8.2) L Albumin 3.6 g/dL (3.4-5.0) Albumin/Globulin Ratio 1.4 (1.0-1.7) Thyroid Stimulating Hormone (TSH) 2.060 uIU/mL (0.358-3.74) Laboratory Tests 02/19/21 22:57 Laboratory Tests 02/19/21 22:57 Vital Signs: Vital Signs Date Time Temp Pulse Resp B/P (MAP) Pulse Ox O2 Delivery O2 Flow Rate FiO2 02/19/21 20:56 97.7 72 16 161/90 (113) 98 Room Air 97.7 EKG: EKG: [] Heart Score: C/O Chest Pain: No Risk Factors: Risk Factors: DM, Current or recent (<one month) smoker, HTN, HLP, family history of CAD, obesity. Risk Scores: Score 0 - 3: 2.5% MACE over next 6 weeks - Discharge Home Score 4 - 6: 20.3% MACE over next 6 weeks - Admit for Clinical Observation Score 7 - 10: 72.7% MACE over next 6 weeks - Early Invasive Strategies Radiology/Procedures: Radiology/Procedures: EP interpretation: Chest unremarkable, no cardiomegaly or infiltrates. [] Course & Med Decision Making: Course & Med Decision Making Pertinent Labs and Imaging studies reviewed. (See chart for details) Patient given 1 g magnesium, magnesium 1 drop since discharge. Offered admission for further evaluation. Patient declines and would like to go home. [] Esteban Disclaimer: Esteban Disclaimer: This electronic medical record was generated, in whole or in part, using a voice recognition dictation system. Departure Departure Impression: Primary Impression: Near syncope Additional Impressions: Hyponatremia Hypomagnesemia Disposition: HOME / SELF CARE / HOMELESS Condition: STABLE Referrals: MAILE GONZÁLES MD (PCP) Patient Instructions: Near-Syncope Scripts Magnesium Oxide (MAGNESIUM OXIDE) 400 Mg Tablet 1 TAB PO BID for 10 Days, #20 TAB 0 Refills Prov: MELISA GUPTA MD 02/20/21 Problem Qualifiers MELISA GUPTA MD Feb 19, 2021 22:10
[2021-02-19 23:04] LABS: BASO # 0.1 x10^3/uL (0.0-0.2); BASO % 1 % (0-3); EOS % 0 % (0-3); HEMATOCRIT 37.6 % (36.0-47.0); HEMOGLOBIN 12.8 g/dL (12.0-15.5); LYMPH # 2.6 x10^3/uL (1.0-4.8); LYMPH % 28 % (24-48); MEAN CORPUSCULAR HEMOGLOBIN 31 pg (25-35); MEAN CORPUSCULAR HGB CONC 34 g/dL (31-37); MEAN CORPUSCULAR VOLUME 91 fL (79-100); MONO # 0.8 x10^3/uL (0.0-1.1); MONO % 9 % (0-9); NEUT # 5.6 x10^3/uL (1.8-7.7); NEUT % 62 % (31-73); PLATELET COUNT 293 x10^3/uL (140-400); RED BLOOD COUNT 4.14 x10^6/uL (3.50-5.40); RED CELL DISTRIBUTION WIDTH 12.6 % (11.5-14.5); WHITE BLOOD COUNT 9.1 x10^3/uL (4.0-11.0)
[2021-02-19 23:18] LABS: CREATININE 1.1 mg/dL (0.6-1.0); GFR 47.8; POTASSIUM 3.3 mmol/L (3.5-5.1)
[2021-02-19 23:23] LABS: ALBUMIN 3.6 g/dL (3.4-5.0); ALBUMIN/GLOBULIN RATIO 1.4 (1.0-1.7); MAGNESIUM 1.6 mg/dL (1.8-2.4); PHOSPHORUS 3.9 mg/dL (2.6-4.7); TOTAL BILIRUBIN 0.4 mg/dL (0.2-1.0); TOTAL PROTEIN 6.2 g/dL (6.4-8.2)
[2021-02-19] MEDS ORDERED: MAGNESIUM SULFATE 1GM 100 ML IV ONE (23:30)
[2021-02-20] MEDS ORDERED: MAGN400T5 PO (00:27)
[2021-02-20 00:30] VITALS: BP 143/67
--- NOTE | 2021-02-20 00:35 | EKG ---
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
--- NOTE | 2021-02-20 04:11 | RAD ---
XR CHEST 1V INDICATION: Reason: near syncope / Spl. Instructions: / History: . COMPARISON STUDY: None. FINDINGS: Lungs: Normal lung volume. No pulmonary mass or consolidation. The tracheobronchial tree and hilar st ructures are normal. Pleura: No pleural effusion or pneumothorax. Heart and Mediastinum: The cardiomediastinal silhouette is normal. Atherosclerosis of the thoracic ao rta. IMPRESSION: No acute cardiopulmonary process. Electronically signed by: Gordo Ward MD (02/20/2021 4:09 AM) [facility]
== END 2021-02-20 00:56 | disposition home or self-care (01) ==
LOC: ER 20:35
DX: R55 Syncope and collapse (principal); E87.1 Hypo-osmolality and hyponatremia; E83.42 Hypomagnesemia; I10 Essential (primary) hypertension; Z88.2 Allergy status to sulfonamides; Z88.5 Allergy status to narcotic agent; Z88.8 Allergy status to other drugs, medicaments and biological substances
CPT/HCPCS: 36415; 71045; 80053; 83605; 83735; 83880; 84100; 84443; 84484; 85025; 93005; 96365; 99285; J3475

== ENCOUNTER → 2021-03-22 | Outpatient (CLI) | payer MEDICARE ==
[2021-02-20 00:30] VITALS: BP 143/67
[~2021-03-22] MED LIST changes: +MAGN400T5 PO
--- NOTE | 2021-03-22 15:45 | CARD ---
MR#: [id number] Date of Study: 03/22/2021 Ordering Physician: ALEXYS SOLOMON, Referring Physician: ALEXYS SOLOMON Tech: Marilee Vaughan [facility] APPROVED REPORT EXAM: Two-dimensional and M-mode echocardiogram with Doppler and color Doppler. Other Information Quality : AverageHR: 66bpm Rhythm : NSR INDICATION Syncope RISK FACTORS Hypertension 2D DIMENSIONS RVDd2.4 (2.9-3.5cm)Left Atrium(2D)4.0 (1.6-4.0cm) IVSd1.1 (0.7-1.1cm)Aortic Root(2D)3.0 (2.0-3.7cm) LVDd4.1 (3.9-5.9cm)LVOT Diameter2.2 (1.8-2.4cm) PWd1.0 (0.7-1.1cm)LVDs3.0 (2.5-4.0cm) FS (%) 26.5 %SV38.0 ml LVEF(%)52.4 (>50%) Aortic Valve AoV Peak Jesús.88.7cm/sAoV VTI19.4cm AO Peak GR.3.2mmHgLVOT Peak Jesús.89.6cm/s AO Mean GR.2mmHgAVA (VMAX)3.92cm2 Mitral Valve MV E Wueuthyo70.6cm/sMV DECEL [id number] MV A Lypsrzay42.9cm/sE/A Ratio0.6 Pulmonary Valve PV Peak Nbnzwglz30.5cm/s Tricuspid Valve TR P. Oivcdmoo270fm/sTR Peak Gr.24mmHg LEFT VENTRICLE The left ventricle is normal size. There is normal left ventricular wall thickness. The left ventricu lar systolic function is normal. The ejection fraction is 55-60%. There is normal LV segmental wall m otion. Transmitral Doppler flow pattern is Grade I-abnormal relaxation pattern. RIGHT VENTRICLE The right ventricle is normal size. There is normal right ventricular wall thickness. The right ventr icular systolic function is normal. ATRIA The left atrium size is normal. The right atrium size is normal. The interatrial septum is intact wit h no evidence for an atrial septal defect or patent foramen ovale as noted on 2-D or Doppler imaging. AORTIC VALVE The aortic valve is normal in structure and function. Doppler and Color Flow revealed mild aortic reg urgitation. There is no significant aortic valvular stenosis. MITRAL VALVE The mitral valve is normal in structure and function. There is no evidence of mitral valve prolapse. There is no mitral valve stenosis. Doppler and Color-flow revealed mild mitral regurgitation. TRICUSPID VALVE The tricuspid valve is normal in structure and function. Doppler and Color Flow revealed mild tricusp id regurgitation. Estimated PAP 30 mmHg. There is no tricuspid valve stenosis. PULMONIC VALVE The pulmonary valve is normal in structure and function. Doppler and Color Flow revealed mild to mode rate pulmonic valvular regurgitation. GREAT VESSELS The aortic root is normal in size. The ascending aorta is normal in size. The IVC is normal in size a nd collapses >50% with inspiration. PERICARDIAL EFFUSION There is no evidence of significant pericardial effusion. Critical Notification Critical Value: No <Conclusion> The left ventricular systolic function is normal. The ejection fraction is 55-60%. There is normal LV segmental wall motion. Transmitral Doppler flow pattern is Grade I-abnormal relaxation pattern. Mild aortic regurgitation. Mild mitral regurgitation. Mild tricuspid regurgitation. Estimated PAP 30 mmHg. There is no evidence of significant pericardial effusion. Signed by : Alexys Solomon, Electronically Approved : 03/22/2021 15:44:53
== END ==
LOC: ECHO 12:38
PROVIDERS: ATTEND Internal Medicine Cardiovascular Disease
DX: I08.8 Other rheumatic multiple valve diseases (principal); R55 Syncope and collapse
CPT/HCPCS: 93306

== ENCOUNTER 2021-08-27 23:39 | Observation (INO) | payer MEDICARE ==
[~2021-08-27] VITALS: Ht 167.6 cm; Wt 71.4 kg
[~2021-08-27 23:39] MED LIST changes: +MAGN400T48 PO; -MAGN400T5 PO
[2021-08-28 00:52] LABS: BASO # 0.1 x10^3/uL (0.0-0.2); BASO % 1 % (0-3); EOS # 0.1 x10^3/uL (0.0-0.7); EOS % 1 % (0-3); HEMATOCRIT 38.2 % (36.0-47.0); HEMOGLOBIN 12.9 g/dL (12.0-15.5); LYMPH % 24 % (24-48); MEAN CORPUSCULAR HEMOGLOBIN 31 pg (25-35); MEAN CORPUSCULAR HGB CONC 34 g/dL (31-37); MEAN CORPUSCULAR VOLUME 91 fL (79-100); MONO # 0.8 x10^3/uL (0.0-1.1); MONO % 10 % (0-9); NEUT # 5.2 x10^3/uL (1.8-7.7); NEUT % 64 % (31-73); PLATELET COUNT 257 x10^3/uL (140-400); RED BLOOD COUNT 4.21 x10^6/uL (3.50-5.40); RED CELL DISTRIBUTION WIDTH 12.9 % (11.5-14.5); WHITE BLOOD COUNT 8.1 x10^3/uL (4.0-11.0)
[2021-08-28] MEDS ORDERED: IV NORMAL SALINE 1000ML BAG 1,000 ML IV ONE (01:00)
[2021-08-28 01:11] LABS: ALBUMIN 3.5 g/dL (3.4-5.0); CALCIUM 8.9 mg/dL (8.5-10.1); CREATININE 1.1 mg/dL (0.6-1.0); GFR 47.8; MAGNESIUM 2.6 mg/dL (1.8-2.4); TOTAL BILIRUBIN 0.3 mg/dL (0.2-1.0); TOTAL PROTEIN 7.1 g/dL (6.4-8.2)
--- NOTE | 2021-08-28 01:17 | PHYS DOC ---
Past Medical History Past Medical History: Hypertension, Unknown, Other Additional Past Medical Histor: parkinsonism, bladder trouble Past Surgical History: Appendectomy, Hysterectomy, Knee Replacement Additional Past Surgical Histo: bilateral great toe surgery, bilat knee replace Smoking Status: Never Smoker Alcohol Use: None Drug Use: None General Adult EDM: Chief Complaint: SYNCOPE HPI: HPI: Patient is an 80-year-old female who presents to the ED after passing out. Patient states that she woke up today at 1030 to get up to take some ibuprofen as she was taking it she said she felt dizzy and then the next thing she knew she was on the floor. Patient states that she she thinks that she was down and out for about 3 to 4 minutes and then went to wake up her . Patient has not had prior episodes of passing out. Patient states that she has had diarrhea with soft, but not liquid stool for the past 3 days. Patient notes a diagnosis of Parkinson's disease for the past 15 years and has been taking carbidopa levodopa and selegiline and is managed by a neurologist. Patient states these doses have not changed, but has changed to the frequency of how much she takes the carbidopa/levodopa within the past couple of months. Patient is not currently on any blood thinners, and only takes an aspirin a day. Patient has never had any prior history of seizures, stroke, or heart issues. Review of Systems: Review of Systems: Constitutional: Denies fever or chills Eyes: Denies redness or eye pain HENT: Denies nasal congestion or sore throat Respiratory: Denies cough or shortness of breath Cardiovascular: Denies chest pain or palpitations GI: Denies abdominal pain, nausea, or vomiting : Denies dysuria or hematuria Musculoskeletal: Denies back pain or joint pain Integument: Denies rash or skin lesions Neurologic: Denies headache, focal weakness or sensory changes; reports syncopal episode Complete systems were reviewed and found to be within normal limits, except as documented in this note. Heart Score: C/O Chest Pain: N/A Current Medications: Current Medications Medications (Trade) Dose Ordered Sig/Portia Start Time Stop Time Status Last Admin Dose Admin Sodium Chloride 1,000 ml @ 1,000 mls/hr 1X ONCE 08/28/21 01:00 08/28/21 01:59 08/28/21 00:35 1,000 MLS/HR Allergies: Allergies: Allergies Coded Allergies Type Severity Reaction Last Updated Verified Sulfa (Sulfonamide Antibiotics) Allergy Intermediate rash 04/21/20 Yes adhesive Allergy Intermediate rash 04/21/20 Yes gabapentin Allergy Intermediate Unknown 04/21/20 No codeine Adverse Reaction Intermediate DISORIENTATION 04/21/20 Yes hydrocodone Adverse Reaction Intermediate "LOOPY" per RR RN 04/21/20 Yes Physical Exam: PE: Constitutional: Well developed, well nourished, no acute distress, non-toxic appearance HENT: Normocephalic, atraumatic Eyes: PERRL, EOMI, conjunctiva normal, no discharge Neck: Normal range of motion, no tenderness, supple Lungs & Thorax: No respiratory distress, equal chest rise and fall Abdomen: Soft, no tenderness Skin: Warm, dry, no erythema, no rash Back: No tenderness, no CVA tenderness Extremities: No tenderness, ROM intact, no edema Neurologic: Alert and oriented X 3, no focal deficits noted Psychologic: Affect normal, judgment normal Current Patient Data: Vital Signs: Vital Signs Date Time Temp Pulse Resp B/P (MAP) Pulse Ox O2 Delivery O2 Flow Rate FiO2 08/28/21 00:15 97.4 62 13 154/77 (102) 98 Room Air 97.4 EKG: EK 08/28/2021 - EKG - Normal Sinus rhythm with some baseline artifact noted - EKG was compared to 02/16/21. at a HR at 64bpm QRS 92ms, QT/QTc 454/473ms Radiology/Procedures: Radiology/Procedures: PROCEDURE: CT HEAD AND CERVICAL SPINE WO EXAM: CT HEAD WITHOUT IV CONTRAST CLINICAL HISTORY: Reason: syncope, pain / Spl. Instructions: / History: COMPARISON: None. TECHNIQUE: Routine CT of the head without contrast. Soft tissues and bone windows were reviewed. PQRS compliance statement - One or more of the following individualized dose reduction techniques were utilized for this study: 1. Automated exposure control 2. Adjustment of the mA and/or kV according to patient size 3. Use of iterative reconstruction technique FINDINGS: There is no evidence of hemorrhage, mass or extra-axial fluid collection. Solitario-white differentiation is maintained with no evidence of edema. There is no mass effect or shift of the intracranial structures. The ventricles, basilar cisterns and cortical sulci are normal in size and configuration for the patients stated age. The cerebellum and brainstem are unremarkable. The calvarium demonstrates no evidence of fracture or focal lesion. There is normal aeration of the visualized paranasal sinuses and mastoid air cells. The visualized portions of the orbits are normal. IMPRESSION: No evidence for acute intracranial process. EXAM: CT CERVICAL SPINE WITHOUT IV CONTRAST CLINICAL HISTORY: Reason: syncope, pain / Spl. Instructions: / History: COMPARISON: None available. TECHNIQUE: Helical CT of the cervical spine was performed. Axial, coronal and sagittal reformatted images were also performed. PQRS compliance statement - One or more of the following individualized dose reduction techniques were utilized for this study: 1. Automated exposure control 2. Adjustment of the mA and/or kV according to patient size 3. Use of iterative reconstruction technique FINDINGS: Vertebral body heights are preserved. Decrease bone mineral density. No acute fracture. Trace anterolisthesis of C6 on C7. Facet degenerative changes bilaterally. Mild C6-7 disc height loss. IMPRESSION: No acute cervical spine fracture. Electronically signed by: Ayaan Smith MD (08/28/2021 1:19 AM) [facility] PROCEDURE: PORTABLE CHEST 1V EXAM: AP View of the chest DATE: 08/28/2021 12:36 AM INDICATION: Reason: syncope / Spl. Instructions: / History: COMPARISON: 02/19/2021 02/16/2021 FINDINGS: The heart is not enlarged. Aortic calcifications are seen. Mediastinal and hilar contours are normal. No focal parenchymal airspace opacity. No pleural effusion or pneumothorax. IMPRESSION: 1. No radiographic evidence for acute cardiopulmonary process. Electronically signed by: Ayaan Smith MD (08/28/2021 2:11 AM) [facility] Course & Med Decision Making: Course & Med Decision Making Pertinent Labs and Imaging studies reviewed. (See chart for details) Patient is a 80-year-old female who presents to the ED after syncopal episode. EKG stable. Labs obtained and posted to chart. Hypokalemia noted and addressed. Troponin within normal limits. CT head without acute process. Chest x-ray clear. Given patient's comorbidities and age decision to admit for further evaluation and treatment. Discussed with Dr. Acevedo (hospitalist) who is in agreement with admission. Discussed findings and plan with patient and spouse, who acknowledge understanding and agreement. Draghamzah Disclaimer: Dragon Disclaimer: This electronic medical record was generated, in whole or in part, using a voice recognition dictation system. Departure Departure Impression: Primary Impression: Syncope Qualified Codes: R55 - Syncope and collapse Additional Impression: Hypokalemia Disposition: 09 ADMITTED INPATIENT Admitting Physician: JEFF Benitez) Condition: STABLE Referrals: MAILE GONZÁLES MD (PCP) NICOLÁS EMMANUEL DO Aug 28, 2021 01:16
--- NOTE | 2021-08-28 01:21 | RAD ---
EXAM: CT HEAD WITHOUT IV CONTRAST CLINICAL HISTORY: Reason: syncope, pain / Spl. Instructions: / History: COMPARISON: None. TECHNIQUE: Routine CT of the head without contrast. Soft tissues and bone windows were reviewed. PQRS compliance statement - One or more of the following individualized dose reduction techniques wer e utilized for this study: 1. Automated exposure control 2. Adjustment of the mA and/or kV according to patient size 3. Use of iterative reconstruction technique FINDINGS: There is no evidence of hemorrhage, mass or extra-axial fluid collection. Solitario-white differentiation is maintained with no evidence of edema. There is no mass effect or shift of the intracranial structures. The ventricles, basilar cisterns and cortical sulci are normal in size and configuration for the atilio ents stated age. The cerebellum and brainstem are unremarkable. The calvarium demonstrates no evidence of fracture or focal lesion. There is normal aeration of the visualized paranasal sinuses and mastoid air cells. The visualized portions of the orbits are normal. IMPRESSION: No evidence for acute intracranial process. EXAM: CT CERVICAL SPINE WITHOUT IV CONTRAST CLINICAL HISTORY: Reason: syncope, pain / Spl. Instructions: / History: COMPARISON: None available. TECHNIQUE: Helical CT of the cervical spine was performed. Axial, coronal and sagittal reformatted im ages were also performed. PQRS compliance statement - One or more of the following individualized dose reduction techniques wer e utilized for this study: 1. Automated exposure control 2. Adjustment of the mA and/or kV according to patient size 3. Use of iterative reconstruction technique FINDINGS: Vertebral body heights are preserved. Decrease bone mineral density. No acute fracture. Trace anterol isthesis of C6 on C7. Facet degenerative changes bilaterally. Mild C6-7 disc height loss. IMPRESSION: No acute cervical spine fracture. Electronically signed by: Ayaan Smith MD (08/28/2021 1:19 AM) [facility]
--- NOTE | 2021-08-28 02:14 | RAD ---
EXAM: AP View of the chest DATE: 08/28/2021 12:36 AM INDICATION: Reason: syncope / Spl. Instructions: / History: COMPARISON: 02/19/2021 02/16/2021 FINDINGS: The heart is not enlarged. Aortic calcifications are seen. Mediastinal and hilar contours are normal. No focal parenchymal airspace opacity. No pleural effusion or pneumothorax. IMPRESSION: 1. No radiographic evidence for acute cardiopulmonary process. Electronically signed by: Ayaan Smith MD (08/28/2021 2:11 AM) [facility]
[2021-08-28 02:38] LABS: BILIRUBIN,URINE NEGATIVE (NEG); CLARITY,URINE CLOUDY; COLOR,URINE YELLOW; NITRITE,URINE NEGATIVE (NEG); PH,URINE 7.5 (<5.0-8.0); PROTEIN,URINE NEGATIVE (NEG-TRACE); UROBILINOGEN,URINE 0.2 mg/dL (0.2 mg/dL)
[2021-08-28 02:53] LABS: BACTERIA,URINE FEW /HPF (0-FEW); HYALINE CASTS, URINE FEW /HPF; RBC,URINE OCC /HPF (0-2); WBC,URINE >40 /HPF (0-4)
--- NOTE | 2021-08-28 04:29 | EKG ---
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
[2021-08-28] MEDS ORDERED: POTASSIUM CHLORIDE 20 MEQ TABLET.ER. PO ONE ×2 (07:00→16:15)
[2021-08-28 08:29] VITALS: BP 159/70
[2021-08-28] MEDS ORDERED: ACETAMINOPHEN 325 MG TABLET. PO PRN (15:15)
[2021-08-28] MEDS ORDERED: ONDANSETRON PF 4 MG/2 ML VIAL. IVP PRN (15:15)
[2021-08-28] MEDS ORDERED: LOSARTAN POTASSIUM 50 MG TABLET. PO SCH (15:20)
[2021-08-28] MEDS ORDERED: CARBIDOPA/LEVODOPA 25/100MG TABLET PO SCH (16:00)
--- NOTE | 2021-08-28 16:13 | PDOC1 ---
History and Physical Date of Admission Date of Admission DATE: 08/28/21 TIME: 16:07 Identification/Chief Complaint Chief Complaint Syncope Source Source: Patient History of Present Illness History of Present Illness Ms Brown is an 80yo F w/ PMHx parkinsons, HTN who presents to the ED after passing out. Patient states that she woke up at 2230 on 08/27/2021 felt dizzy and awoke on the floor. She got up quickly and awakened her . She has previously experienced presyncope 6 months ago and had cardiac workup outpatient with recent visit and normal echocardiogram. Patient notes a diagnosis of Parkinson's disease for the past 15 years and has been taking carbidopa levodopa and selegiline and is managed by a neurologist at [facility]. Patient states these doses have not changed, but has changed to the frequency of how much she takes the carbidopa/levodopa within the past couple of months. Patient is not currently on any blood thinners, and only takes an aspirin a day. Patient has never had any prior history of seizures, stroke, or heart issues. Labs with WBC 8.1, Hb 12.9, platelets 257, NA 137, K3, BUN 25, CR 1.1, glucose 1 12, lactic acid 0.5, calcium 8.9, magnesium 2.6, LFTs within normal laboratory limits, high-sensitivity troponin is 8, albumin is 3.5, urinalysis with squamous cells contaminated. COVID-[address] rapid and PCR negative. CT head and neck with no acute fracture or abnormality EKG sinus rhythm rate of 64 bpm with some baseline artifact. CT interval 258, QTc 454 Admitted for further care. Past Medical History Cardiovascular: HTN Pulmonary: Pneumonia, Other CENTRAL NERVOUS SYSTEM: Other Musculoskeletal: Osteoarthritis Past Surgical History Past Surgical History: Appendectomy, Total knee replacement, Hysterectomy Family History Family History: Cancer Social History Smoke: No ALCOHOL: none Drugs: None Current Problem List Problem List Problems Medical Problems: (1) Hypokalemia Status: Acute (2) Syncope Status: Acute Current Medications Current Medications Current Medications Sodium Chloride 1,000 ml @ 1,000 mls/hr 1X ONCE IV Last administered on 08/28/21at 00:35; Start 08/28/21 at 01:00; Stop 08/28/21 at 01:59; Status DC Potassium Chloride (Klor-Con) 40 meq 1X ONCE PO Last administered on 08/28/21at 08:27; Start 08/28/21 at 07:00; Stop 08/28/21 at 07:01; Status DC Carbidopa/Levodopa (Sinemet 25/100) 0.5 tab 6XDAY PO ; Start 08/28/21 at 16:00 Losartan Potassium (Cozaar) 100 mg DAILY PO ; Start 08/28/21 at 15:20 Non-Formulary Medication (Selegiline Hcl ) 5 mg DAILY07 PO ; Start 08/29/21 at 07:00; Status UNV Acetaminophen (Tylenol) 650 mg PRN Q6HRS PRN PO MILD PAIN / TEMP > 100.3'F; Start 08/28/21 at 15:15 Ondansetron HCl (Zofran) 4 mg PRN Q4HRS PRN IVP NAUSEA/VOMITING; Start 08/28/21 at 15:15 Potassium Chloride (Klor-Con) 40 meq 1X ONCE PO ; Start 08/28/21 at 16:15; Stop 08/28/21 at 16:16 Active Scripts Active Magnesium Oxide 400 Mg Tablet 1 Tab PO BID 10 Days Tylenol (Acetaminophen) 325 Mg Tablet 650 Mg PO PRN Q6HRS PRN Reported Losartan Potassium 100 Mg Tablet 100 Mg PO DAILY16 Atenolol-Chlorthal 50-25 Tb (Atenolol/Chlorthalidone) 1 Each Tablet 1 Tab PO DAILY Aspir 81 (Aspirin) 81 Mg Tablet.dr 81 Mg PO DAILY Oxybutynin Chloride 5 Mg Tablet 5 Mg PO TID Selegiline Hcl 5 Mg Tablet 5 Mg PO DAILY07 Carbidopa-Levodopa 25-100 Tab (Carbidopa/Levodopa) 1 Each Tablet 0.5 Each PO 6XDAY Pt takes medication at 0700, 1000, 1300, 1600, 1900, 2200 Allergies Allergies: Coded Allergies: Sulfa (Sulfonamide Antibiotics) (Verified Allergy, Intermediate, rash, 04/21/20) adhesive (Verified Allergy, Intermediate, rash, 04/21/20) gabapentin (Unverified Allergy, Intermediate, Unknown, 04/21/20) codeine (Verified Adverse Reaction, Intermediate, DISORIENTATION, 04/21/20) hydrocodone (Verified Adverse Reaction, Intermediate, "LOOPY" per RR RN, 04/21/20) ROS General: No: Chills, Night Sweats, Fatigue, Malaise, Appetite, Other PSYCHOLOGICAL ROS: No: Anxiety, Behavioral Disorder, Concentration difficultie, Decreased libido, Depression, Disorientation, Hallucinations, Hostility, Irritablity, Memory difficulties, Mood Swings, Obsessive thoughts, Physical abuse, Sexual abuse, Sleep disturbances, Suicidal ideation, Other Eyes: No Blurry vision, No Decreased vision, No Double vision, No Dry eyes, No Excessive tearing, No Eye Pain, No Itchy Eyes, No Loss of vision, No Photophobia, No Scotomata, No Uses contacts, No Uses glasses, No Other HEENT: No: Heacaches, Visual Changes, Hearing change, Nasal congestion, Nasal discharge, Oral lesions, Sinus pain, Sore Throat, Epistaxis, Sneezing, Snoring, Tinnitus, Vertigo, Vocal changes, Other ALLERGY AND IMMUNOLOGY: No: Hives, Insect Bite Sensitivity, Itchy/Watery Eyes, Nasal Congestion, Post Nasal Drip, Seasonal Allergies, Other Hematological and Lymphatic: No: Bleeding Problems, Blood Clots, Blood Transfusions, Brusing, Night Sweats, Pallor, Swollen Lymph Nodes, Other ENDOCRINE: No: Breast Changes, Galactorrhea, Hair Pattern Changes, Hot Flashes, Malaise/lethargy, Mood Swings, Palpitations, Polydipsia/polyuria, Skin Changes, Temperature Intolerance, Unexpected Weight Changes, Other Breast: No New/Changing Breast Lumps, No Nipple changes, No Nipple discharge, No Other Respiratory: No: Cough, Hemoptysis, Orthopnea, Pleuritic Pain, Shortness of breath, SOB with excertion, Sputum Changes, Stridor, Tachypnea, Wheezing, Other Cardiovascular: No Chest Pain, No Palpitations, No Orthopnea, No Paroxysmal Noc. Dyspnea, No Edema, No Lt Headedness, No Other Gastrointestinal: No Nausea, No Vomiting, No Abdominal Pain, No Diarrhea, No Constipation, No Melena, No Hematochezia, No Other Genitourinary: No Dysuria, No Frequency, No Incontinence, No Hematuria, No Retention, No Discharge, No Urgency, No Pain, No Flank Pain, No Other, No , No , No , No , No , No , No Musculoskeletal: No Gait Disturbance, No Joint Pain, No Joint Stiffness, No Joint Swelling, No Muscle Pain, No Muscular Weakness, No Pain In:, No Swelling In:, No Other Neurological: No Behavorial Changes, No Bowel/Bladder ControlChng, No Confusion , No Dizziness, No Gait Disturbance, No Headaches, No Impaired Coord/balance, No Memory Loss, No Numbness/Tingling, No Seizures, No Speech Problems, No Tremors, No Visual Changes, No Weakness, No Other Skin: No Dry Skin, No Eczema, No Hair Changes, No Lumps, No Mole Changes, No Mottling, No Nail Changes, No Pruritus, No Rash, No Skin Lesion Changes, No Other, No Acne Physical Exam General: Alert, Oriented X3, Cooperative, No acute distress HEENT: Atraumatic, PERRLA, EOMI, Mucous membr. moist/pink Lungs: Clear to auscultation, Normal air movement Heart: S1S2, RRR, no thrills, no rubs, no gallops, no murmurs Abdomen: Normal bowel sounds, Soft, No tenderness, No hepatosplenomegaly, No masses Rectal Exam: not examined Extremities: No clubbing, No cyanosis, No edema, Normal pulses, No tenderness/swelling Skin: No rashes, No breakdown, No significant lesion Neuro: Normal gait, Normal speech, Strength at 5/5 X4 ext, Normal tone, Sensation intact, Cranial nerves 3-12 NL, Reflexes 2+ Psych/Mental Status: Mental status NL, Mood NL Vitals Vitals Vital Signs Date Time Temp Pulse Resp B/P (MAP) Pulse Ox O2 Delivery O2 Flow Rate FiO2 08/28/21 08:29 72 20 159/70 (99) 99 Room Air 08/28/21 00:15 97.4 97.4 Labs Labs Laboratory Tests Test 08/28/21 00:45 08/28/21 01:02 08/28/21 01:25 08/28/21 02:30 White Blood Count 8.1 x10^3/uL (4.0-11.0) Red Blood Count 4.21 x10^6/uL (3.50-5.40) Hemoglobin 12.9 g/dL (12.0-15.5) Hematocrit 38.2 % (36.0-47.0) Mean Corpuscular Volume 91 fL (79-100) Mean Corpuscular Hemoglobin 31 pg (25-35) Mean Corpuscular Hemoglobin Concent 34 g/dL (31-37) Red Cell Distribution Width 12.9 % (11.5-14.5) Platelet Count 257 x10^3/uL (140-400) Neutrophils (%) (Auto) 64 % (31-73) Lymphocytes (%) (Auto) 24 % (24-48) Monocytes (%) (Auto) 10 % (0-9) Eosinophils (%) (Auto) 1 % (0-3) Basophils (%) (Auto) 1 % (0-3) Neutrophils # (Auto) 5.2 x10^3/uL (1.8-7.7) Lymphocytes # (Auto) 2.0 x10^3/uL (1.0-4.8) Monocytes # (Auto) 0.8 x10^3/uL (0.0-1.1) Eosinophils # (Auto) 0.1 x10^3/uL (0.0-0.7) Basophils # (Auto) 0.1 x10^3/uL (0.0-0.2) Sodium Level 137 mmol/L (136-145) Potassium Level 3.0 mmol/L (3.5-5.1) Chloride Level 98 mmol/L (98-107) Carbon Dioxide Level 30 mmol/L (21-32) Anion Gap 9 (6-14) Blood Urea Nitrogen 25 mg/dL (7-20) Creatinine 1.1 mg/dL (0.6-1.0) Estimated GFR (Cockcroft-Gault) 47.8 BUN/Creatinine Ratio 23 (6-20) Glucose Level 112 mg/dL (70-99) Calcium Level 8.9 mg/dL (8.5-10.1) Magnesium Level 2.6 mg/dL (1.8-2.4) Total Bilirubin 0.3 mg/dL (0.2-1.0) Aspartate Amino Transf (AST/SGOT) 27 U/L (15-37) Alanine Aminotransferase (ALT/SGPT) 9 U/L (14-59) Alkaline Phosphatase 68 U/L (46-116) Creatine Kinase 85 U/L (26-192) Creatine Kinase MB (Mass) 0.9 ng/mL (0.0-3.6) Creatine Kinase MB Relative Index 1.1 % (0-4) Troponin I High Sensitivity 8 ng/L (4-50) Total Protein 7.1 g/dL (6.4-8.2) Albumin 3.5 g/dL (3.4-5.0) Albumin/Globulin Ratio 1.0 (1.0-1.7) Lactic Acid Level 0.5 mmol/L (0.4-2.0) SARS-CoV-2 RNA (NADIRA) Negative (Negative) SARS-CoV-2 Antigen (Rapid) Negative (NEGATIVE) Urine Collection Type Unknown Urine Color Yellow Urine Clarity Cloudy Urine pH 7.5 (<5.0-8.0) Urine Specific [place] 1.010 (1.000-1.030) Urine Protein Negative mg/dL (NEG-TRACE) Urine Glucose (UA) Negative mg/dL (NEG) Urine Ketones (Stick) Negative mg/dL (NEG) Urine Blood Negative (NEG) Urine Nitrite Negative (NEG) Urine Bilirubin Negative (NEG) Urine Urobilinogen Dipstick 0.2 mg/dL (0.2 mg/dL) Urine Leukocyte Esterase Large (NEG) Urine RBC Occ /HPF (0-2) Urine WBC >40 /HPF (0-4) Urine Squamous Epithelial Cells Mod /LPF Urine Bacteria Few /HPF (0-FEW) Urine Hyaline Casts Few /HPF Urine Mucus Slight /LPF Laboratory Tests Test 08/28/21 00:45 08/28/21 01:02 08/28/21 01:25 08/28/21 02:30 White Blood Count 8.1 x10^3/uL (4.0-11.0) Red Blood Count 4.21 x10^6/uL (3.50-5.40) Hemoglobin 12.9 g/dL (12.0-15.5) Hematocrit 38.2 % (36.0-47.0) Mean Corpuscular Volume 91 fL (79-100) Mean Corpuscular Hemoglobin 31 pg (25-35) Mean Corpuscular Hemoglobin Concent 34 g/dL (31-37) Red Cell Distribution Width 12.9 % (11.5-14.5) Platelet Count 257 x10^3/uL (140-400) Neutrophils (%) (Auto) 64 % (31-73) Lymphocytes (%) (Auto) 24 % (24-48) Monocytes (%) (Auto) 10 % (0-9) Eosinophils (%) (Auto) 1 % (0-3) Basophils (%) (Auto) 1 % (0-3) Neutrophils # (Auto) 5.2 x10^3/uL (1.8-7.7) Lymphocytes # (Auto) 2.0 x10^3/uL (1.0-4.8) Monocytes # (Auto) 0.8 x10^3/uL (0.0-1.1) Eosinophils # (Auto) 0.1 x10^3/uL (0.0-0.7) Basophils # (Auto) 0.1 x10^3/uL (0.0-0.2) Sodium Level 137 mmol/L (136-145) Potassium Level 3.0 mmol/L (3.5-5.1) Chloride Level 98 mmol/L (98-107) Carbon Dioxide Level 30 mmol/L (21-32) Anion Gap 9 (6-14) Blood Urea Nitrogen 25 mg/dL (7-20) Creatinine 1.1 mg/dL (0.6-1.0) Estimated GFR (Cockcroft-Gault) 47.8 BUN/Creatinine Ratio 23 (6-20) Glucose Level 112 mg/dL (70-99) Calcium Level 8.9 mg/dL (8.5-10.1) Magnesium Level 2.6 mg/dL (1.8-2.4) Total Bilirubin 0.3 mg/dL (0.2-1.0) Aspartate Amino Transf (AST/SGOT) 27 U/L (15-37) Alanine Aminotransferase (ALT/SGPT) 9 U/L (14-59) Alkaline Phosphatase 68 U/L (46-116) Creatine Kinase 85 U/L (26-192) Creatine Kinase MB (Mass) 0.9 ng/mL (0.0-3.6) Creatine Kinase MB Relative Index 1.1 % (0-4) Troponin I High Sensitivity 8 ng/L (4-50) Total Protein 7.1 g/dL (6.4-8.2) Albumin 3.5 g/dL (3.4-5.0) Albumin/Globulin Ratio 1.0 (1.0-1.7) Lactic Acid Level 0.5 mmol/L (0.4-2.0) SARS-CoV-2 RNA (NADIRA) Negative (Negative) SARS-CoV-2 Antigen (Rapid) Negative (NEGATIVE) Urine Collection Type Unknown Urine Color Yellow Urine Clarity Cloudy Urine pH 7.5 (<5.0-8.0) Urine Specific [place] 1.010 (1.000-1.030) Urine Protein Negative mg/dL (NEG-TRACE) Urine Glucose (UA) Negative mg/dL (NEG) Urine Ketones (Stick) Negative mg/dL (NEG) Urine Blood Negative (NEG) Urine Nitrite Negative (NEG) Urine Bilirubin Negative (NEG) Urine Urobilinogen Dipstick 0.2 mg/dL (0.2 mg/dL) Urine Leukocyte Esterase Large (NEG) Urine RBC Occ /HPF (0-2) Urine WBC >40 /HPF (0-4) Urine Squamous Epithelial Cells Mod /LPF Urine Bacteria Few /HPF (0-FEW) Urine Hyaline Casts Few /HPF Urine Mucus Slight /LPF Images Images CT head and neck: There is no evidence of hemorrhage, mass or extra-axial fluid collection. Solitario-white differentiation is maintained with no evidence of edema. There is no mass effect or shift of the intracranial structures. The ventricles, basilar cisterns and cortical sulci are normal in size and configuration for the patients stated age. The cerebellum and brainstem are unremarkable. The calvarium demonstrates no evidence of fracture or focal lesion. There is normal aeration of the visualized paranasal sinuses and mastoid air cells. The visualized portions of the orbits are normal. IMPRESSION: No evidence for acute intracranial process. EXAM: CT CERVICAL SPINE WITHOUT IV CONTRAST CLINICAL HISTORY: Reason: syncope, pain / Spl. Instructions: / History: COMPARISON: None available. TECHNIQUE: Helical CT of the cervical spine was performed. Axial, coronal and sagittal reformatted images were also performed. PQRS compliance statement - One or more of the following individualized dose reduction techniques were utilized for this study: 1. Automated exposure control 2. Adjustment of the mA and/or kV according to patient size 3. Use of iterative reconstruction technique FINDINGS: Vertebral body heights are preserved. Decrease bone mineral density. No acute fracture. Trace anterolisthesis of C6 on C7. Facet degenerative changes bilaterally. Mild C6-7 disc height loss. IMPRESSION: No acute cervical spine fracture. VTE Prophylaxis Ordered VTE Prophylaxis Devices: No VTE Pharmacological Prophylaxi: Yes Assessment/Plan Assessment/Plan A/P Dizziness with near syncope - almost certainly secondary to hypovolemia. No acute events on tele or EKG Hypertension; controlled. Recommend decreasing meds Hypokalemia - replace PO Parkinson's - cont home meds. Could have developed some autonomic instability FEN - Cardiac diet PPX - lovenox FULL CODE Dispo - observation Justifications for Admission Other Justification Near syncope JUSTICE KIRK MD Aug 28, 2021 16:13
--- NOTE | 2021-08-28 16:52 | PDOC3 ---
Discharge Summary Visit Information Date of Admission: Aug 27, 2021 Date of Discharge: Aug 28, 2021 Admitting Diagnosis: Syncope Final Diagnosis Problems Medical Problems: (1) Hypokalemia Status: Acute (2) Syncope Status: Acute Brief Hospital Course Allergies Allergies Coded Allergies Type Severity Reaction Last Updated Verified Sulfa (Sulfonamide Antibiotics) Allergy Intermediate rash 04/21/20 Yes adhesive Allergy Intermediate rash 04/21/20 Yes gabapentin Allergy Intermediate Unknown 04/21/20 No codeine Adverse Reaction Intermediate DISORIENTATION 04/21/20 Yes hydrocodone Adverse Reaction Intermediate "LOOPY" per RR RN 04/21/20 Yes Vital Signs Vital Signs Date Time Temp Pulse Resp B/P (MAP) Pulse Ox O2 Delivery O2 Flow Rate FiO2 08/28/21 08:29 72 20 159/70 (99) 99 Room Air 08/28/21 00:15 97.4 97.4 Lab Results Laboratory Tests Test 08/28/21 00:45 08/28/21 01:02 08/28/21 01:25 08/28/21 02:30 White Blood Count 8.1 x10^3/uL (4.0-11.0) Red Blood Count 4.21 x10^6/uL (3.50-5.40) Hemoglobin 12.9 g/dL (12.0-15.5) Hematocrit 38.2 % (36.0-47.0) Mean Corpuscular Volume 91 fL (79-100) Mean Corpuscular Hemoglobin 31 pg (25-35) Mean Corpuscular Hemoglobin Concent 34 g/dL (31-37) Red Cell Distribution Width 12.9 % (11.5-14.5) Platelet Count 257 x10^3/uL (140-400) Neutrophils (%) (Auto) 64 % (31-73) Lymphocytes (%) (Auto) 24 % (24-48) Monocytes (%) (Auto) 10 % (0-9) Eosinophils (%) (Auto) 1 % (0-3) Basophils (%) (Auto) 1 % (0-3) Neutrophils # (Auto) 5.2 x10^3/uL (1.8-7.7) Lymphocytes # (Auto) 2.0 x10^3/uL (1.0-4.8) Monocytes # (Auto) 0.8 x10^3/uL (0.0-1.1) Eosinophils # (Auto) 0.1 x10^3/uL (0.0-0.7) Basophils # (Auto) 0.1 x10^3/uL (0.0-0.2) Sodium Level 137 mmol/L (136-145) Potassium Level 3.0 mmol/L (3.5-5.1) Chloride Level 98 mmol/L (98-107) Carbon Dioxide Level 30 mmol/L (21-32) Anion Gap 9 (6-14) Blood Urea Nitrogen 25 mg/dL (7-20) Creatinine 1.1 mg/dL (0.6-1.0) Estimated GFR (Cockcroft-Gault) 47.8 BUN/Creatinine Ratio 23 (6-20) Glucose Level 112 mg/dL (70-99) Calcium Level 8.9 mg/dL (8.5-10.1) Magnesium Level 2.6 mg/dL (1.8-2.4) Total Bilirubin 0.3 mg/dL (0.2-1.0) Aspartate Amino Transf (AST/SGOT) 27 U/L (15-37) Alanine Aminotransferase (ALT/SGPT) 9 U/L (14-59) Alkaline Phosphatase 68 U/L (46-116) Creatine Kinase 85 U/L (26-192) Creatine Kinase MB (Mass) 0.9 ng/mL (0.0-3.6) Creatine Kinase MB Relative Index 1.1 % (0-4) Troponin I High Sensitivity 8 ng/L (4-50) Total Protein 7.1 g/dL (6.4-8.2) Albumin 3.5 g/dL (3.4-5.0) Albumin/Globulin Ratio 1.0 (1.0-1.7) Lactic Acid Level 0.5 mmol/L (0.4-2.0) SARS-CoV-2 RNA (NADIRA) Negative (Negative) SARS-CoV-2 Antigen (Rapid) Negative (NEGATIVE) Urine Collection Type Unknown Urine Color Yellow Urine Clarity Cloudy Urine pH 7.5 (<5.0-8.0) Urine Specific [place] 1.010 (1.000-1.030) Urine Protein Negative mg/dL (NEG-TRACE) Urine Glucose (UA) Negative mg/dL (NEG) Urine Ketones (Stick) Negative mg/dL (NEG) Urine Blood Negative (NEG) Urine Nitrite Negative (NEG) Urine Bilirubin Negative (NEG) Urine Urobilinogen Dipstick 0.2 mg/dL (0.2 mg/dL) Urine Leukocyte Esterase Large (NEG) Urine RBC Occ /HPF (0-2) Urine WBC >40 /HPF (0-4) Urine Squamous Epithelial Cells Mod /LPF Urine Bacteria Few /HPF (0-FEW) Urine Hyaline Casts Few /HPF Urine Mucus Slight /LPF Laboratory Tests Test 08/28/21 00:45 08/28/21 01:02 08/28/21 01:25 08/28/21 02:30 White Blood Count 8.1 x10^3/uL (4.0-11.0) Red Blood Count 4.21 x10^6/uL (3.50-5.40) Hemoglobin 12.9 g/dL (12.0-15.5) Hematocrit 38.2 % (36.0-47.0) Mean Corpuscular Volume 91 fL (79-100) Mean Corpuscular Hemoglobin 31 pg (25-35) Mean Corpuscular Hemoglobin Concent 34 g/dL (31-37) Red Cell Distribution Width 12.9 % (11.5-14.5) Platelet Count 257 x10^3/uL (140-400) Neutrophils (%) (Auto) 64 % (31-73) Lymphocytes (%) (Auto) 24 % (24-48) Monocytes (%) (Auto) 10 % (0-9) Eosinophils (%) (Auto) 1 % (0-3) Basophils (%) (Auto) 1 % (0-3) Neutrophils # (Auto) 5.2 x10^3/uL (1.8-7.7) Lymphocytes # (Auto) 2.0 x10^3/uL (1.0-4.8) Monocytes # (Auto) 0.8 x10^3/uL (0.0-1.1) Eosinophils # (Auto) 0.1 x10^3/uL (0.0-0.7) Basophils # (Auto) 0.1 x10^3/uL (0.0-0.2) Sodium Level 137 mmol/L (136-145) Potassium Level 3.0 mmol/L (3.5-5.1) Chloride Level 98 mmol/L (98-107) Carbon Dioxide Level 30 mmol/L (21-32) Anion Gap 9 (6-14) Blood Urea Nitrogen 25 mg/dL (7-20) Creatinine 1.1 mg/dL (0.6-1.0) Estimated GFR (Cockcroft-Gault) 47.8 BUN/Creatinine Ratio 23 (6-20) Glucose Level 112 mg/dL (70-99) Calcium Level 8.9 mg/dL (8.5-10.1) Magnesium Level 2.6 mg/dL (1.8-2.4) Total Bilirubin 0.3 mg/dL (0.2-1.0) Aspartate Amino Transf (AST/SGOT) 27 U/L (15-37) Alanine Aminotransferase (ALT/SGPT) 9 U/L (14-59) Alkaline Phosphatase 68 U/L (46-116) Creatine Kinase 85 U/L (26-192) Creatine Kinase MB (Mass) 0.9 ng/mL (0.0-3.6) Creatine Kinase MB Relative Index 1.1 % (0-4) Troponin I High Sensitivity 8 ng/L (4-50) Total Protein 7.1 g/dL (6.4-8.2) Albumin 3.5 g/dL (3.4-5.0) Albumin/Globulin Ratio 1.0 (1.0-1.7) Lactic Acid Level 0.5 mmol/L (0.4-2.0) SARS-CoV-2 RNA (NADIRA) Negative (Negative) SARS-CoV-2 Antigen (Rapid) Negative (NEGATIVE) Urine Collection Type Unknown Urine Color Yellow Urine Clarity Cloudy Urine pH 7.5 (<5.0-8.0) Urine Specific [place] 1.010 (1.000-1.030) Urine Protein Negative mg/dL (NEG-TRACE) Urine Glucose (UA) Negative mg/dL (NEG) Urine Ketones (Stick) Negative mg/dL (NEG) Urine Blood Negative (NEG) Urine Nitrite Negative (NEG) Urine Bilirubin Negative (NEG) Urine Urobilinogen Dipstick 0.2 mg/dL (0.2 mg/dL) Urine Leukocyte Esterase Large (NEG) Urine RBC Occ /HPF (0-2) Urine WBC >40 /HPF (0-4) Urine Squamous Epithelial Cells Mod /LPF Urine Bacteria Few /HPF (0-FEW) Urine Hyaline Casts Few /HPF Urine Mucus Slight /LPF Brief Hospital Course Ms Brown is an 80yo F w/ PMHx parkinsons, HTN who presents to the ED after passing out. Patient states that she woke up at 2230 on 08/27/2021 felt dizzy and awoke on the floor. She got up quickly and awakened her . She has previously experienced presyncope 6 months ago and had cardiac workup outpatient with recent visit and normal echocardiogram. Patient notes a diagnosis of Parkinson's disease for the past 15 years and has been taking carbidopa levodopa and selegiline and is managed by a neurologist at [facility]. Patient states these doses have not changed, but has changed to the frequency of how much she takes the carbidopa/levodopa within the past couple of months. Patient is not currently on any blood thinners, and only takes an aspirin a day. Patient has never had any prior history of seizures, stroke, or heart issues. Labs with WBC 8.1, Hb 12.9, platelets 257, NA 137, K3, BUN 25, CR 1.1, glucose 112, lactic acid 0.5, calcium 8.9, magnesium 2.6, LFTs within normal laboratory limits, high-sensitivity troponin is 8, albumin is 3.5, urinalysis with squamous cells contaminated. COVID-[address] head and neck with no acute fracture or abnormality EKG sinus rhythm rate of 64 bpm with some baseline artifact. NM interval 258, QTc 454 Admitted for further care. Given 1L NSS and 80meq potassium and on repeat evaluation had negative orthostatics. Has outpatient neurology, cardiology and PCP follow up. Recommended stopping chlorthalidone and cutting back atenolol outpatient Repeat PE: BP 159/70, HR 72 bpm. On standing 152/72 and HR 78 BPM General: Alert, Oriented X3, Cooperative, No acute distress HEENT: Atraumatic, PERRLA, EOMI, Mucous membr. moist/pink Lungs: Clear to auscultation, Normal air movement Heart: S1S2, RRR, no thrills, no rubs, no gallops, no murmurs Abdomen: Normal bowel sounds, Soft, No tenderness, No hepatosplenomegaly, No masses Rectal Exam: not examined Extremities: No clubbing, No cyanosis, No edema, Normal pulses, No tenderness/swelling Skin: No rashes, No breakdown, No significant lesion Neuro: Normal gait, Normal speech, Strength at 5/5 X4 ext, Normal tone, Sensation intact, Cranial nerves 3-12 NL, Reflexes 2+ Psych/Mental Status: Mental status NL, Mood NL Problem list: Dizziness with near syncope - almost certainly secondary to hypovolemia. No acute events on tele or EKG. Recommended stopping chlorthalidone and cutting back atenolol outpatient Hypertension; controlled. Recommend decreasing meds Hypokalemia - replace PO. Recommended stopping chlorthalidone outpatient Parkinson's - cont home meds. Could have developed some autonomic instability Greater than 135 minutes spent on same day admit and d/c Discharge Information Condition at Discharge: Improved Follow Up: Weeks (1) Disposition/Orders: D/C to Home Scheduled Aspirin (Aspir 81) 81 Mg Tablet.dr, 81 MG PO DAILY for heart health, (Reported) Entered as Reported by: DONNIE HULL on 09/22/13 06 Carbidopa/Levodopa (Carbidopa-Levodopa 25-100 Tab) 1 Each Tablet, 0.5 EACH PO 6XDAY for parkinsons, (Reported) Pt takes medication at 0700, 1000, 1300, 1600, 1900, 2200 Entered as Reported by: DONNIE HULL on 09/22/13629 Last Action: Continued on 08/28/211515 by JUSTICE KIRK MD Losartan Potassium (Losartan Potassium) 100 Mg Tablet, 100 MG PO DAILY16 for HYPERTENSION, (Reported) Entered as Reported by: DONTE PARK RN on 02/16/21 0743 Last Action: Converted on 08/28/211515 by JUSTICE KIRK MD Magnesium Oxide (Magnesium Oxide) 400 Mg Tablet, 1 TAB PO BID for 10 Days, #20 Ref 0 Prescribed by: MELISA GUPTA MD on 02/20/21 0027 Oxybutynin Chloride (Oxybutynin Chloride) 5 Mg Tablet, 5 MG PO TID for overactive bladder, (Reported) Entered as Reported by: DONNIE HULL on 09/22/13629 Selegiline Hcl (Selegiline Hcl) 5 Mg Tablet, 5 MG PO DAILY07 for Parkinsons, (Reported) Entered as Reported by: DONNIE HULL on 09/22/13629 Last Action: Converted on 08/28/211515 by JUSTICE KIRK MD Scheduled PRN Acetaminophen (Tylenol) 325 Mg Tablet, 650 MG PO PRN Q6HRS PRN for PAIN / TEMP, #60 Prescribed by: JASON BAER on 12/02/14 1008 Discontinued Medications Atenolol/Chlorthalidone (Atenolol-Chlorthal 50-25 Tb) 1 Each Tablet, 1 TAB PO DAILY, #30 Ref 5 (Reported) Entered as Reported by: PAUL MARTÍNEZ on 02/25/18 2250 Justicifation of Admission Dx: Justifications for Admission: Justification of Admission Dx: Yes JUSTICE KIRK MD Aug 28, 2021 16:52
[2021-08-29] MEDS ORDERED: SELEGILINE HCL 5 MG PO SCH (07:00)
== END 2021-08-28 18:17 | disposition home or self-care (01) ==
LOC: ER 23:39 → INTOOBSV 08-28 02:00 → ED HOLD 08-28 02:00
PROVIDERS: ADMIT Student in an Organized Health Care Education/Training Program; ATTEND Student in an Organized Health Care Education/Training Program
DX: R55 Syncope and collapse (principal); Z20.822 Contact with and (suspected) exposure to COVID-19; I10 Essential (primary) hypertension; E87.6 Hypokalemia; E86.1 Hypovolemia; G20 Parkinson's disease; M19.90 Unspecified osteoarthritis, unspecified site; J18.9 Pneumonia, unspecified organism; Z90.49 Acquired absence of other specified parts of digestive tract; Z90.710 Acquired absence of both cervix and uterus; Z96.659 Presence of unspecified artificial knee joint; Z79.82 Long term (current) use of aspirin; Z79.899 Other long term (current) drug therapy; Z98.890 Other specified postprocedural states
CPT/HCPCS: 70450; 71045; 72125; 80053; 81001; 82553; 83605; 83735; 84484; 85025; 87086; 87426; 93005; 96360; 99285; G0378; J7030; U0003; U0005; G0379

== ENCOUNTER → 2021-09-05 | Outpatient (CLI) | payer MEDICARE ==
[2021-08-28 08:29] VITALS: BP 159/70
--- NOTE | 2021-09-05 15:24 | KCIC ---
EXAM: Right knee, 3 views. HISTORY: Fall. COMPARISON: None. FINDINGS: 3 views of the right knee are obtained. There is a right knee arthroplasty in expected posi tion. There is no evidence of arthroplasty loosening or periprosthetic fracture. There is trace right knee joint fluid. IMPRESSION: Right knee arthroplasty in expected position. Trace right knee joint fluid. Electronically signed by: Tania Bey MD (09/05/2021 3:22 PM) [id number]
== END ==
LOC: KCIC 14:50
PROVIDERS: ATTEND Family Medicine
DX: M25.561 Pain in right knee (principal); Z96.651 Presence of right artificial knee joint
CPT/HCPCS: 73562

== ENCOUNTER → 2021-09-13 | Outpatient (CLI) | payer MEDICARE ==
[2021-08-28 08:29] VITALS: BP 159/70
--- NOTE | 2021-09-13 14:45 | KCIC ---
INDICATION: Reason: Sinusitis, facial pain. / Spl. Instructions: / History: Rt sided facial pain.. COMPARISON: CT head August 28, 2021 TECHNIQUE: Axial CT images obtained through the paranasal sinuses. One or more of the following individualized dose reduction techniques were utilized for this examinat ion: 1. Automated exposure control; 2. Adjustment of the mA and/or kV according to patient size; 3 . Use of iterative reconstruction technique. FINDINGS: Degenerative changes at partially visualized upper cervical spine. Maxillary sinuses are well aerated. Frontal sinus, ethmoid air cells and sphenoid sinus well aerated. Nasal septal bowing to the right. IMPRESSION: * Paranasal sinuses are well aerated without evidence of sinusitis. Electronically signed by: Alberto Martinez MD (09/13/2021 2:43 PM) [id number]
== END ==
LOC: KCIC CT 13:43
PROVIDERS: ATTEND Family Medicine
DX: J32.9 Chronic sinusitis, unspecified (principal); M47.812 Spondylosis without myelopathy or radiculopathy, cervical region
CPT/HCPCS: 70486